=== PATIENT | male | born 2000 | race Asian ===

== ENCOUNTER 2024-03-21 20:12 | Inpatient (IN) | payer OTHER ==
[~2024-03-21] VITALS: Ht 172.7 cm; Wt 81.8 kg
[2024-03-22 11:21] VITALS: BP 132/59; PULSE 64; RESP 18; TEMP 98.2; O2SAT 100
[2024-03-22 13:11] LABS: ALBUMIN 3.7 g/dL (3.4-5.0); BILIRUBIN,DIRECT 0.1 mg/dL (0.00-0.20); BILIRUBIN,TOTAL 0.4 mg/dL (0.1-1.0); TOTAL PROTEIN, SERUM 7.8 g/dL (6.4-8.2)
[2024-03-22 16:20] LABS: MTB PCR w/Rif. Resistance-SPUT NOT DETECTED (Not Detectd)
[2024-03-22 19:50] VITALS: BP 124/73; PULSE 71; RESP 14; TEMP 98.1; O2SAT 99
[2024-03-22] MEDS ORDERED: SODIUM CHLORIDE 3% 15 ML NEB SOLUTION NEB ONE (21:31)
[2024-03-23 00:43] LABS: MTB PCR w/Rif. Resistance-SPUT NOT DETECTED (Not Detectd)
[2024-03-23 02:06] LABS: HIV 1-2 SCREEN 4TH GEN W/RFLX Non Reactive (Non Reactive)
[2024-03-23 05:45] VITALS: BP 117/74; PULSE 64; RESP 16; TEMP 97.5; O2SAT 100
[2024-03-23] MEDS ORDERED: SODIUM CHLORIDE 3% 15 ML NEB SOLUTION NEB ONE (05:47)
[2024-03-23 08:28] VITALS: BP 109/57; PULSE 80; RESP 20; TEMP 97.7; O2SAT 100
[2024-03-23 09:39] LABS: MTB PCR w/Rif. Resistance-SPUT NOT DETECTED (Not Detectd)
[2024-03-23 23:17] VITALS: BP 132/78; PULSE 74; RESP 17; TEMP 98.6; O2SAT 100
[2024-03-24 09:31] VITALS: BP 100/69; PULSE 86; RESP 18; TEMP 97.9; O2SAT 100
[2024-03-24 16:58] VITALS: BP 126/88; PULSE 65; RESP 18; TEMP 98.2; O2SAT 100
[2024-03-24 20:00] VITALS: BP 120/71; PULSE 66; RESP 18; TEMP 98.5; O2SAT 98
[2024-03-25 03:37] LABS: QUANTIFERON+, Nil Value 0.02 IU/mL; QUANTIFERON+,Mitogen Value >10.00 IU/mL; QUANTIFERON+,TB1 Antigen Value 8.82 IU/mL; QUANTIFERON+,TB2 Antigen Value 7.48 IU/mL; QUANTIFERON, TB GOLD PLUS Positive (Negative)
[2024-03-25 04:16] VITALS: BP 111/58; PULSE 67; RESP 18; TEMP 97.7; O2SAT 100
[2024-03-25 20:15] VITALS: BP 104/59; PULSE 70; RESP 20; TEMP 97.7; O2SAT 97
[2024-03-26 05:10] VITALS: BP 117/82; PULSE 71; RESP 18; TEMP 97.8; O2SAT 100
[2024-03-26 19:49] VITALS: BP 115/74; PULSE 64; RESP 20; TEMP 98; O2SAT 99
[2024-03-27 05:57] VITALS: BP 117/61; PULSE 64; RESP 18; TEMP 97.8; O2SAT 100
[2024-03-27 12:58] LABS: BASOPHILS % (AUTO) 0.7 % (0.0-2.0); EOSINOPHILS % (AUTO) 2.2 % (1.0-6.0); HEMATOCRIT 48.2 % (41-53); HEMOGLOBIN 16.1 g/dL (13.5-17.5); LYMPHOCYTES # (AUTO) 2.4 K/uL (1.0-4.8); LYMPHOCYTES % (AUTO) 26.7 % (22.0-44.0); MEAN CORPUSCULAR HEMOGLOBIN 29.1 pg (26.0-34.0); MEAN CORPUSCULAR HGB CONC 33.5 G/dL (31.0-37.0); MEAN CORPUSCULAR VOLUME 87 fL (80-100); MONOCYTES # (AUTO) 0.6 K/uL (0.1-1.0); MONOCYTES % (AUTO) 6.7 % (2.0-9.0); NEUTROPHILS # (AUTO) 5.6 K/uL (1.8-7.7); NEUTROPHILS % (AUTO) 63.7 % (40.0-70.0); PLATELET COUNT (AUTO) 241 K/uL (150-450); RED BLOOD CELL COUNT(AUTO) 5.54 MIL/uL (4.50-5.90); RED CELL DISTRIBUTION WIDTH 12.8 % (11.5-14.5); WHITE BLOOD COUNT (AUTO) 8.8 K/uL (4.5-11.0)
[2024-03-27 12:59] LABS: ANION GAP 5 mmol/L (8-16); CALCIUM, TOTAL 9.6 mg/dL (8.8-10.5); CARBON DIOXIDE 31 mmol/L (22-29); CHLORIDE 101 mmol/L (98-107); CREATININE 1.19 mg/dL (0.60-1.30); GLOMERULAR FILTR. RATE CALC > 60 mL/min (>60); GLUCOSE,RANDOM 106 mg/dL (70-110); POTASSIUM 4.9 mmol/L (3.5-5.1); SODIUM SERUM 137 mmol/L (136-145); UREA NITROGEN, BLOOD 14 mg/dL (7-18)
[2024-03-27] MEDS ORDERED: ISON300T17 PO (17:06)
[2024-03-27] MEDS ORDERED: RIFA300C63 PO (17:06)
[2024-03-27] MEDS ORDERED: ETHA100 PO (17:07)
[2024-03-27] MEDS ORDERED: PYRI-9 PO (17:08)
[2024-03-27] MEDS ORDERED: PYRA500T33 PO (17:08)
== END 2024-03-27 17:15 | DRG 179 ==
LOC: EMS 20:12 → EDH 03-22 06:32 → 6S 03-22 08:43
PROVIDERS: ADMIT Internal Medicine; ATTEND Internal Medicine
DX: A15.0 Tuberculosis of lung (principal)
CPT/HCPCS: 71046; 71250; 80048; 80076; 85025; 86480; 87015; 87206; 87389; 87556; 94640; 99285; 36415-L1; 36415-TC